=== PATIENT | male | born 1950 | race Caucasian/White ===

== ENCOUNTER 2017-06-12 17:26 | Emergency (ER) | payer MEDICARE, MEDICAID ==
[~2017-06-12] VITALS: Ht 175.3 cm; Wt 95.5 kg
[~2017-06-12 17:26] MED LIST: ARTI99.0 OU; ASPI1TAB PO; ASPI1TAB15 PO; ATOR1TAB19 PO; CLAR10CA3 PO; DEPA1TAB3 PO; DEPA250T32 PO; DEPA500T2 PO; DIAZ10TA2 PO; DOXEPIN PO; ESZO1TAB3 PO; FENO160T10 PO; GLUC500T PO; LISI25TA PO; LISIPOW PO; METO50TA7 PO; METOPROLOL TARTRATE PO; NAPR500T3 PO; NATE60TA5 PO; PANT40TA2 PO; RANI15TA PO; TAMS0.4C2 PO; TRAZ1TAB14 PO; VALI10TA PO; VALI5TAB PO; ZANTTAB PO; [UNRECOGNIZED DRUG - CODE] PO
[2017-06-12 17:56] LABS: MEAN CORPUSCULAR HEMOGLOBIN 36.5 pg (27.0-33.0); MEAN CORPUSCULAR HGB CONC 34.5 g/dl (32.0-36.5); MEAN CORPUSCULAR VOLUME 105.8 fl (80.0-96.0); RED CELL DISTRIBUTION WIDTH 13.2 % (11.5-14.5)
[2017-06-12 18:30] LABS: METHADONE URINE NEGATIVE (NEGATIVE)
[2017-06-12 18:37] LABS: ALBUMIN 3.4 GM/DL (3.2-5.2); ALKALINE PHOSPHATASE 45 U/L (45-117); ALT/SGPT 29 U/L (12-78); ANION GAP 8 MEQ/L (8-16); AST/SGOT 54 U/L (15-37); BILIRUBIN,DIRECT 0.2 MG/DL (0.0-0.2); BILIRUBIN,TOTAL 0.3 MG/DL (0.2-1.0); BLOOD UREA NITROGEN 27 MG/DL (7-18); CALCIUM LEVEL 8.3 MG/DL (8.8-10.2); CARBON DIOXIDE LEVEL 24 MEQ/L (21-32); CHLORIDE LEVEL 113 MEQ/L (98-107); CREATININE FOR GFR 1.03 MG/DL (0.70-1.30); GLOMERULAR FILTRATION RATE > 60.0 (>49); GLUCOSE, FASTING 94 MG/DL (80-110); POTASSIUM SERUM 4.2 MEQ/L (3.5-5.1); SODIUM LEVEL 145 MEQ/L (136-145); TOTAL PROTEIN 6.8 GM/DL (6.4-8.2)
[2017-06-12 19:57] VITALS: BP 146/74
== END 2017-06-12 20:47 | disposition home or self-care (01) ==
LOC: M ED 17:26
DX: F31.9 Bipolar disorder, unspecified (principal); E11.9 Type 2 diabetes mellitus without complications; I10 Essential (primary) hypertension; K21.9 Gastro-esophageal reflux disease without esophagitis; E78.5 Hyperlipidemia, unspecified; Z87.442 Personal history of urinary calculi; Z79.1 Long term (current) use of non-steroidal anti-inflammatories (NSAID); Z79.899 Other long term (current) drug therapy
CPT/HCPCS: 36415; 80048; 80076; 80164; 80307; 84443; 85027; 99284; G0480